=== PATIENT | female | born 1955 | race Two or more races ===

== ENCOUNTER 2020-10-02 16:30 | Emergency (ER) | payer SELFPAY ==
[~2020-10-02] VITALS: Ht 165.1 cm; Wt 66.0 kg
[2020-10-02] MEDS ORDERED: ASPIRIN 81MG TABLET PO ONE (17:15)
[2020-10-02] MEDS ORDERED: NITROGLYCERIN OINT 1GM/INCH UDPKT TD ONE (17:15)
[2020-10-02 17:31] LABS: BASOPHILS % 0.8 % (0.0-2.0); EOSINOPHILS % 2.1 % (0.0-5.0); HEMATOCRIT. 38.6 % (36.0-48.0); LYMPHOCYTES % 43.1 % (20.0-50.0); MEAN CORPUSCULAR HEMOGLOBIN 30.8 pg (28.0-32.0); MEAN CORPUSCULAR VOLUME 91.3 fL (81.0-99.0); MONOCYTES % 6.4 % (2.0-8.0); NEUTROPHILS % 47.6 % (40.0-76.0); PLATELET 385 x1000/uL (130-400); RED BLOOD CELL COUNT 4.23 mill/uL (4.2-5.4)
[2020-10-02 17:38] LABS: CHLORIDE 105 mEq/L (98-107)
[2020-10-02] MEDS ORDERED: POTASSIUM CHLORIDE 20MEQ TABLET SR PO ONE (21:00)
[2020-10-02 23:18] VITALS: BP 154/78
== END 2020-10-02 23:34 | disposition home or self-care (01) ==
LOC: ER 16:30
DX: R06.02 Shortness of breath (principal); I10 Essential (primary) hypertension; Z90.710 Acquired absence of both cervix and uterus; Z98.890 Other specified postprocedural states
CPT/HCPCS: 36415; 71045; 80053; 83880; 84484; 85025; 93005; 99285; Z7610